=== PATIENT | female | born 1950 | race Caucasian/White ===

== ENCOUNTER → 2016-06-17 15:08 | Outpatient (CLI) | payer MEDICARE ==
[2015-02-20 07:51] VITALS: BMI 36.6
[~2016-06-17 15:08] MED LIST: BAYER CHEWABLE81 MG PO; LISINOPRIL10 MG PO; NORVASC5 MG PO; TRANDATE200 MG PO
== END | disposition home or self-care (01) ==
LOC: D.CT 15:08
DX: I65.22 Occlusion and stenosis of left carotid artery (principal)